=== PATIENT | female | born 1945 | race Caucasian/White ===

== ENCOUNTER 2017-11-01 02:52 | Day surgery (SDC) | payer MEDICARE, BC ==
[~2017-11-01 02:52] MED LIST: AMLO5; ASPI81EC; ATOR40TA PO; CLOP75; CRUTCH4 USE; DILT120ER; ETOD500; EZET10; GLIM4; GLIP5; HYDACE5 PO; HYDCHL25; JARDIANCE25 MG; LOSARTAN POTAS100 MG; METF850; OMEP20ER; POTA10T; VALS80; VENL150ER
== END 2017-11-01 22:55 | disposition home or self-care (01) ==
LOC: MOI MAM 02:52
PROC: BH40ZZZ Ultrasonography of Right Breast (ICD-10-PCS; principal; 2017-11-01)
DX: D24.1 Benign neoplasm of right breast (principal); N60.91 Unspecified benign mammary dysplasia of right breast
CPT/HCPCS: 19285; 19286; 76642; 77065

== ENCOUNTER 2017-12-02 07:00 | Day surgery (SDC) | payer MEDICARE, BC ==
[2017-12-02] MEDS ORDERED: RANITIDINE PO (10:46)
[2017-12-02] MEDS ORDERED: Venlafaxine HCl75 MG PO (10:46)
[2017-12-02] MEDS ORDERED: ATOR20 PO (10:47)
[2017-12-02] MEDS ORDERED: NABU750 PO (10:47)
[2017-12-02] MEDS ORDERED: AMLO10 PO (10:48)
[2017-12-02] MEDS ORDERED: METF850 PO (10:48)
[2017-12-02] MEDS ORDERED: CLOP75 PO (10:48)
[2017-12-02] MEDS ORDERED: GLIM2 PO (10:48)
[2017-12-02] MEDS ORDERED: JARDIANCE25 MG PO ×2 (10:49→10:50)
[2017-12-02] MEDS ORDERED: LOSA25 PO (10:50)
[2017-12-02] MEDS ORDERED: TRADJENTA5 MG PO ×2 (10:51→10:52)
[2017-12-02] MEDS ORDERED: COQ1050 MG PO (10:52)
[2017-12-02] MEDS ORDERED: CHOL10002 PO (10:53)
[2017-12-02] MEDS ORDERED: GLUCOSAMINE PO (10:53)
== END 2017-12-02 23:19 | disposition home or self-care (01) ==
LOC: MOI MAM 07:00
PROC: BH00ZZZ Plain Radiography of Right Breast (ICD-10-PCS; principal; 2017-12-02)
DX: N63.10 Unspecified lump in the right breast, unspecified quadrant (principal); N60.89 Other benign mammary dysplasias of unspecified breast; R92.8 Other abnormal and inconclusive findings on diagnostic imaging of breast
CPT/HCPCS: 19285; 19286; 77065

== ENCOUNTER 2017-12-09 08:39 | Day surgery (SDC) | payer MEDICARE, BC ==
[~2017-12-09] VITALS: Ht 165.1 cm; Wt 109.8 kg
[~2017-12-09 08:39] MED LIST changes: +AMLO10 PO; +ATOR20 PO; +CHOL10002 PO; +CLOP75 PO; +COQ1050 MG PO; +GLIM2 PO; +GLUCOSAMINE PO; +JARDIANCE25 MG PO; +LOSA25 PO; +METF850 PO; +NABU750 PO; +RANITIDINE PO; +TRADJENTA5 MG PO; +Venlafaxine HCl75 MG PO
== END 2017-12-09 22:50 | disposition home or self-care (01) ==
LOC: ORSCMMR 08:39 → ORD 10:15 → ORSCMMR 10:15
PROVIDERS: Surgery
PROC: 0HBT0ZZ Excision of Right Breast, Open Approach (ICD-10-PCS; principal; 2017-12-09 10:15)
DX: C50.111 Malignant neoplasm of central portion of right female breast (principal); Z17.0 Estrogen receptor positive status [ER+]; N60.81 Other benign mammary dysplasias of right breast; R92.8 Other abnormal and inconclusive findings on diagnostic imaging of breast; E11.9 Type 2 diabetes mellitus without complications; I10 Essential (primary) hypertension; I25.10 Atherosclerotic heart disease of native coronary artery without angina pectoris; E78.5 Hyperlipidemia, unspecified; G47.33 Obstructive sleep apnea (adult) (pediatric); Z86.73 Personal history of transient ischemic attack (TIA), and cerebral infarction without residual deficits; K21.9 Gastro-esophageal reflux disease without esophagitis; Z79.899 Other long term (current) drug therapy; E66.01 Morbid (severe) obesity due to excess calories; Z68.41 Body mass index [BMI] 40.0-44.9, adult
CPT/HCPCS: 76098; 82947; 88307; 88341; 88342; 88360; J0690; J2250; J3010; J7120

== ENCOUNTER → 2020-04-25 | Outpatient (CLI) | payer MEDICARE, BC | LOC: PLD 10:02 → LAB SHORT 10:02 | DX: D22.39 Melanocytic nevi of other parts of face (principal) | CPT/HCPCS: 88305 ==

== ENCOUNTER → 2020-05-03 | Outpatient (CLI) | payer MEDICARE, BC | END | disposition home or self-care (01) | LOC: PLD 14:43 → LAB SHORT 14:43 | DX: D22.39 Melanocytic nevi of other parts of face (principal) | CPT/HCPCS: 88305 ==

== ENCOUNTER 2022-01-05 10:58 | Day surgery (SDC) | payer MEDICARE, BC ==
[~2022-01-05] VITALS: Ht 165.1 cm; Wt 96.8 kg
== END 2022-01-05 14:39 | disposition home or self-care (01) ==
LOC: ORSCSDS 10:58
PROVIDERS: Internal Medicine Gastroenterology
PROC: 0DBM8ZX Excision of Descending Colon, Via Natural or Artificial Opening Endoscopic, Diagnostic (ICD-10-PCS; principal; 2022-01-05 12:45)
PROC: 0DBL8ZX Excision of Transverse Colon, Via Natural or Artificial Opening Endoscopic, Diagnostic (ICD-10-PCS; principal; 2022-01-05 12:45)
DX: Z12.11 Encounter for screening for malignant neoplasm of colon (principal); Z86.010 Personal history of colon polyps; D12.3 Benign neoplasm of transverse colon; D12.4 Benign neoplasm of descending colon; K64.8 Other hemorrhoids; K21.9 Gastro-esophageal reflux disease without esophagitis; I10 Essential (primary) hypertension; G47.33 Obstructive sleep apnea (adult) (pediatric); E78.5 Hyperlipidemia, unspecified; G47.30 Sleep apnea, unspecified; I25.10 Atherosclerotic heart disease of native coronary artery without angina pectoris; E11.9 Type 2 diabetes mellitus without complications; I21.4 Non-ST elevation (NSTEMI) myocardial infarction; F41.8 Other specified anxiety disorders; Z86.73 Personal history of transient ischemic attack (TIA), and cerebral infarction without residual deficits; E66.9 Obesity, unspecified; Z68.35 Body mass index [BMI] 35.0-35.9, adult; Z79.84 Long term (current) use of oral hypoglycemic drugs; Z79.01 Long term (current) use of anticoagulants; Z79.899 Other long term (current) drug therapy
CPT/HCPCS: 82947; 88305; J2704

== ENCOUNTER → 2022-09-21 | Outpatient (CLI) | payer MEDICARE, BC | END | disposition home or self-care (01) | LOC: LAB SHORT 12:14 → LAB 12:14 | DX: N39.0 Urinary tract infection, site not specified (principal) | CPT/HCPCS: 87077; 87086; 87186 ==

== ENCOUNTER → 2025-01-19 | Outpatient (CLI) | payer MEDICARE, BC | END | disposition home or self-care (01) | LOC: LAB 12:52 → LAB SHORT 12:52 | DX: R30.0 Dysuria (principal) | CPT/HCPCS: 87077; 87086; 87186; 87335 ==

== ENCOUNTER 2025-03-17 17:33 | Observation (INO) | payer MEDICARE, BC ==
[~2025-03-17] VITALS: Ht 170.2 cm; Wt 42.3 kg
[~2025-03-17 17:33] MED LIST changes: +METF500C PO; -METF850 PO
[2025-03-17 18:06] LABS: BASOPHILS ABSOLUTE AUTO 0.05 K/mm3 (0.00-0.23); BASOPHILS PERCENT AUTO 0 % (0-2); EOSINOPHILS ABSOLUTE AUTO 0.12 K/mm3 (0.00-0.68); EOSINOPHILS PERCENT AUTO 1 % (0-6); Hematocrit 40.2 % (33.0-51.0); Hemoglobin 12.9 g/dL (11.5-16.0); IMMATURE GRAN ABSOLUTE AUTO 0.04 K/mm3 (0.00-0.10); IMMATURE GRAN PERCENT AUTO 0 % (0-1); LYMPHOCYTES ABSOLUTE AUTO 2.07 K/mm3 (0.84-5.20); LYMPHOCYTES PERCENT AUTO 18 % (21-46); MONOCYTES ABSOLUTE AUTO 0.80 K/mm3 (0.16-1.47); MONOCYTES PERCENT AUTO 7 % (4-13); Mean Corpuscular HGB Conc 32.1 g/dL (31.5-36.5); Mean Corpuscular Volume 88 fL (80-100); NEUTROPHILS ABSOLUTE AUTO 8.17 K/mm3 (1.96-9.15); NEUTROPHILS PERCENT AUTO 73 % (41-73); NRBC ABSOLUTE 0.00 K/mm3 (0.00-0.02); NRBC Auto 0.0 /100 WBC (0.0-0.2); Platelet Count 355 K/mm3 (150-400); RDW Coefficient Variation 14.1 % (11.7-14.2); RDW Standard Deviation 45.2 fL (35.1-46.3)
[2025-03-17 19:45] LABS: Source, Urine Straight Cath
[2025-03-17 19:47] LABS: Bilirubin, Urine Neg (Neg); Color, Urine Yellow (P-Yellow); Glucose Qualitative, Urine Neg (Neg); Ketones, Urine Neg (Neg); Leukocyte Esterase, Urine 1+ (Neg); Protein, Urine Neg (Neg); Specific Gravity, Urine 1.005 (1.003-1.022); Urobilinogen, Urine NORM (Normal)
[2025-03-17 19:51] LABS: Alanine Aminotransfer (ALT/SGP 26.0 U/L (12-78); Albumin, Blood 3.9 g/dL (3.4-5.0); Albumin/Globulin Ratio 1.1 (0.8-1.8); Anion Gap 10.0 mmol/L (3-11); Aspartate Aminotrans (AST/SGOT 13.0 U/L (12-37); Bilirubin, Total 0.4 mg/dL (0.1-1.0); Blood Urea Nitrogen 16.0 mg/dL (8-24); CO2, Blood 25.0 mmol/L (21-32); Calcium, Blood 9.2 mg/dL (8.5-10.1); Chloride, Blood 104.0 mmol/L (98-108); Creatinine, Blood 1.13 mg/dL (0.40-1.00); Globulin, Blood 3.4 g/dL (2.2-4.0); Glucose, Blood 130.0 mg/dL (70-99); Potassium, Blood 4.3 mmol/L (3.5-5.5); Sodium, Blood 135.0 mmol/L (136-145); Total Protein, Blood 7.3 g/dL (6.4-8.2)
[2025-03-17 19:56] LABS: Red Blood Cells, Urine 0-2 /hpf (0-2)
[2025-03-17] MEDS ORDERED: Insulin Human Lispro 100 Units/ML 3ML Syringe SC SCH (21:00)
[2025-03-17] MEDS ORDERED: NS 1,000 ML IV SCH (21:05)
[2025-03-17] MEDS ORDERED: Ondansetron HCl 2 MG / ML 2ML Vial IV PRN (21:05)
[2025-03-17] MEDS ORDERED: FLU VACC TS2025(65UP)/MF59C/PF 45 MCG/0.5 ML SYRINGE IM SCH (21:05)
[2025-03-17] MEDS ORDERED: Oxybutynin Chlor5 M1 PO (22:53)
[2025-03-17] MEDS ORDERED: TRULICITY3 MG/0.5 M SQ (22:54)
[2025-03-17] MEDS ORDERED: Diflucan150 MG PO (22:55)
[2025-03-17] MEDS ORDERED: SUFLAVE POWDER1 EACH PO (22:56)
--- NOTE | 2025-03-17 23:30 | NUR ---
ADMIT NOTE: PT ARRIVED VIA GURNEY WITH ENGINEERING TECHNICAL ANALYST. PT TRANSFERED TO BED WITH 1 P AST. PT PLACED IN GOWN AND CHANGED INTO NEW BREIF. 2 NURSE SKIN CHECK COMLETED WITH TANESHA BARAHONA RN. VS TAKEN. TELE ORDERED BUT UNABLE TO BE PLACED ON PT DUE TO NO TELE BOXES AVAILABLE. PT ORIENTED TO ROOM AND SHOWN HOW TO USE CALL LIGHT.
[2025-03-17 23:32] VITALS: BP 149/56
[2025-03-18 03:39] VITALS: BP 149/67
--- NOTE | 2025-03-18 04:03 | NUR ---
SHIFT SUMMARY: PT WAS ADMITTED TONIGHT FOR A TIA. PLAN IS FOR PT TO HAVE MRI DURING DAY SHIFT. PT IS A SBA TO [facility]. PT SLEPT MOST OF THE SHIFT AND IS ABLE TO MAKE NEEDS KNOWN.
[2025-03-18 06:29] LABS: Hematocrit 38.4 % (33.0-51.0); Hemoglobin 12.3 g/dL (11.5-16.0); Mean Corpuscular HGB Conc 32.0 g/dL (31.5-36.5); Mean Corpuscular Volume 88 fL (80-100); NRBC ABSOLUTE 0.00 K/mm3 (0.00-0.02); NRBC Auto 0.0 /100 WBC (0.0-0.2); Platelet Count 306 K/mm3 (150-400); RDW Coefficient Variation 13.8 % (11.7-14.2); RDW Standard Deviation 44.5 fL (35.1-46.3)
[2025-03-18 07:00] LABS: Anion Gap 10 mmol/L (3-11); Blood Urea Nitrogen 12 mg/dL (8-24); CHOL/HDL RATIO 3.1; CO2, Blood 22 mmol/L (21-32); Calcium, Blood 8.9 mg/dL (8.5-10.1); Chloride, Blood 108 mmol/L (98-108); Cholesterol 110 mg/dL (50-200); Creatinine, Blood 0.85 mg/dL (0.40-1.00); Glucose, Blood 117 mg/dL (70-99); HDL Cholesterol 35 mg/dL (>39); LDL/HDL RATIO 1.0; Low Density Lipoprotein Chol 36 mg/dL (0-110); Potassium, Blood 3.8 mmol/L (3.5-5.5); Sodium, Blood 136 mmol/L (136-145); Triglycerides 196 mg/dL (30-160); Very Low Density Lipoprot Chol 39 mg/dL (6-32)
[2025-03-18 07:44] VITALS: BP 155/67
[2025-03-18] MEDS ORDERED: Enoxaparin 40 MG/0.4 ML SYR SC SCH (09:00)
[2025-03-18] MEDS ORDERED: Enoxaparin 30 MG/0.3 ML SYR SC SCH (09:00)
[2025-03-18 11:56] VITALS: BP 133/80
--- NOTE | 2025-03-18 13:43 | NUR ---
DISCHARGE NOTE- PT WAS GIVEN VERBAL AND WRITTEN DISCHARGE INSTRUCTIONS AND ACKNOWLEDGED UNDERSTANING OF THEM.IV AND TELE DC'D PRIOR TO DISCHARGE. PT ESCORTED OUT VIA WC BY THE FRONT END SOFTWARE ENGINEER, NO S&S OF DISTRESS NOTED AT THE TIME OF DISCHARGE. PT DAUGHTER AWARE OF THE DISCHARGE INSTRUCTIONS WELL.
== END 2025-03-18 13:15 | disposition home health service (06) ==
LOC: ER 17:33 → ERHOLD 17:34 → MEDS 17:34
PROVIDERS: Emergency Medicine; Nurse Practitioner Acute Care; Student in an Organized Health Care Education/Training Program; ADMIT Student in an Organized Health Care Education/Training Program
DX: G45.9 Transient cerebral ischemic attack, unspecified (principal); I10 Essential (primary) hypertension; E78.5 Hyperlipidemia, unspecified; E11.9 Type 2 diabetes mellitus without complications; G47.33 Obstructive sleep apnea (adult) (pediatric); R91.1 Solitary pulmonary nodule; M19.071 Primary osteoarthritis, right ankle and foot; Z79.84 Long term (current) use of oral hypoglycemic drugs; Z79.02 Long term (current) use of antithrombotics/antiplatelets; Z79.899 Other long term (current) drug therapy
CPT/HCPCS: 36415; 70450; 70496; 70498; 70551; 71046; 73610; 80048; 80053; 80061; 81001; 82947; 83036; 83690; 84484; 85025; 85027; 93005; 93010; 93306; 97116; 97162; 99285-25; A9270; G0378; J1650; Q9967

== ENCOUNTER 2025-05-29 15:57 | Emergency (ER) | payer MEDICARE, BC ==
[~2025-05-29] VITALS: Ht 167.6 cm; Wt 108.9 kg
[~2025-05-29 15:57] MED LIST changes: +Diflucan150 MG PO; +Oxybutynin Chlor5 M1 PO; +SUFLAVE POWDER1 EACH PO; +TRULICITY3 MG/0.5 M SQ
[2025-05-29 16:12] VITALS: BP 120/107
[2025-05-29 16:37] LABS: BASOPHILS ABSOLUTE AUTO 0.05 K/mm3 (0.00-0.23); BASOPHILS PERCENT AUTO 1 % (0-2); EOSINOPHILS ABSOLUTE AUTO 0.07 K/mm3 (0.00-0.68); EOSINOPHILS PERCENT AUTO 1 % (0-6); Hematocrit 45.0 % (33.0-51.0); Hemoglobin 13.6 g/dL (11.5-16.0); IMMATURE GRAN ABSOLUTE AUTO 0.03 K/mm3 (0.00-0.10); IMMATURE GRAN PERCENT AUTO 0 % (0-1); LYMPHOCYTES ABSOLUTE AUTO 1.59 K/mm3 (0.84-5.20); LYMPHOCYTES PERCENT AUTO 15 % (21-46); MONOCYTES ABSOLUTE AUTO 0.70 K/mm3 (0.16-1.47); MONOCYTES PERCENT AUTO 7 % (4-13); Mean Corpuscular HGB Conc 30.2 g/dL (31.5-36.5); Mean Corpuscular Volume 94 fL (80-100); NEUTROPHILS ABSOLUTE AUTO 8.06 K/mm3 (1.96-9.15); NEUTROPHILS PERCENT AUTO 77 % (41-73); NRBC ABSOLUTE 0.00 K/mm3 (0.00-0.02); NRBC Auto 0.0 /100 WBC (0.0-0.2); Platelet Count 328 K/mm3 (150-400); RDW Coefficient Variation 13.5 % (11.7-14.2); RDW Standard Deviation 46.9 fL (35.1-46.3)
[2025-05-29 16:54] LABS: Alanine Aminotransfer (ALT/SGP 21.0 U/L (12-78); Albumin, Blood 3.5 g/dL (3.4-5.0); Albumin/Globulin Ratio 1.0 (0.8-1.8); Anion Gap 13.0 mmol/L (3-11); Aspartate Aminotrans (AST/SGOT 18.0 U/L (12-37); Bilirubin, Total 0.5 mg/dL (0.1-1.0); Blood Urea Nitrogen 15.0 mg/dL (8-24); CO2, Blood 17.0 mmol/L (21-32); Calcium, Blood 9.1 mg/dL (8.5-10.1); Chloride, Blood 105.0 mmol/L (98-108); Creatinine, Blood 1.05 mg/dL (0.40-1.00); Globulin, Blood 3.6 g/dL (2.2-4.0); Glucose, Blood 173.0 mg/dL (70-99); Potassium, Blood 4.5 mmol/L (3.5-5.5); Sodium, Blood 130.0 mmol/L (136-145); Total Protein, Blood 7.1 g/dL (6.4-8.2)
== END 2025-05-29 17:46 | disposition home or self-care (01) ==
LOC: ER 15:57
PROVIDERS: Emergency Medicine
DX: R47.01 Aphasia (principal)
CPT/HCPCS: 70450; 80053; 85025; 99285-25